=== PATIENT | female | born 1960 | race Caucasian/White ===

== ENCOUNTER 2019-02-13 15:15 | Emergency (ER) | payer MEDICAID ==
[~2019-02-13] VITALS: Ht 152.4 cm; Wt 120.5 kg
[2019-02-13 15:24] VITALS: Ht 152.4 cm; Wt 120.5 kg
[2019-02-13] MEDS ORDERED: CALCIUM 500 +1 EAC3 PO (17:37)
[2019-02-13] MEDS ORDERED: CELEXA10 MG PO (17:38)
[2019-02-13] MEDS ORDERED: FLOMAX0.4 MG PO (17:38)
[2019-02-13] MEDS ORDERED: CLARITIN 10 MG10 MG PO (17:38)
[2019-02-13] MEDS ORDERED: DOXYCYCLINE HY100 M2 PO (17:38)
[2019-02-13] MEDS ORDERED: LASIX40 MG PO (17:39)
[2019-02-13] MEDS ORDERED: FLUTICASONE PRO16 GM NASAL (17:39)
[2019-02-13] MEDS ORDERED: MILK OF MAGNESI30 ML PO (17:39)
[2019-02-13] MEDS ORDERED: MULTI-DAY VITAM1 TAB PO (17:40)
[2019-02-13] MEDS ORDERED: K-DUR20 MEQ PO (17:40)
[2019-02-13] MEDS ORDERED: HYDROCODONE-A1 UDTA2 PO (17:40)
[2019-02-13] MEDS ORDERED: PRAVACHOL40 MG PO (17:40)
[2019-02-13] MEDS ORDERED: REMERON15 MG PO (17:41)
[2019-02-13] MEDS ORDERED: VITAMIN C500 M1 PO (17:41)
[2019-02-13] MEDS ORDERED: TOPROL XL25 MG PO (17:41)
[2019-02-13] MEDS ORDERED: REGLAN10 MG PO (17:41)
[2019-02-13] MEDS ORDERED: ZANTAC300 MG PO (17:42)
[2019-02-13] MEDS ORDERED: VITAMIN D5000 UNIT PO (17:42)
[2019-02-13] MEDS ORDERED: ZINC-220220 MG PO (17:42)
[2019-02-13 18:57] VITALS: BP 136/70
== END 2019-02-13 18:58 ==
LOC: D.ER 15:15
DX: M54.2 Cervicalgia (principal); W18.09XA Striking against other object with subsequent fall, initial encounter; I10 Essential (primary) hypertension; E78.5 Hyperlipidemia, unspecified; K21.9 Gastro-esophageal reflux disease without esophagitis

== ENCOUNTER → 2019-02-14 13:32 | Outpatient (CLI) | payer MEDICAID ==
[2019-02-13 15:24] VITALS: BMI 51.8
[~2019-02-14 13:32] MED LIST: CALCIUM 500 +1 EAC3 PO; CELEXA10 MG PO; CLARITIN 10 MG10 MG PO; DOXYCYCLINE HY100 M2 PO; FLOMAX0.4 MG PO; FLUTICASONE PRO16 GM NASAL; HYDROCODONE-A1 UDTA2 PO; K-DUR20 MEQ PO; LASIX40 MG PO; MILK OF MAGNESI30 ML PO; MULTI-DAY VITAM1 TAB PO; PRAVACHOL40 MG PO; REGLAN10 MG PO; REMERON15 MG PO; TOPROL XL25 MG PO; VITAMIN C500 M1 PO; VITAMIN D5000 UNIT PO; ZANTAC300 MG PO; ZINC-220220 MG PO
== END | disposition home or self-care (01) ==
LOC: D.HCCARDIO 02-05 13:30 → D.HCCECHO 13:32 → D.HCCARDIO 14:00 → D.HCCECHO 14:00
PROVIDERS: ATTEND Internal Medicine Cardiovascular Disease
DX: R00.2 Palpitations (principal)

== ENCOUNTER 2019-12-31 00:16 | Observation (INO) | payer MEDICAID ==
[~2019-12-31] VITALS: Ht 152.4 cm; Wt 95.5 kg
[2019-12-31 01:30] LABS: BASOPHILS 0.2 % (0-2); EOSINOPHILS 1.7 % (0-7); HEMATOCRIT 34.6 % (36.0-48.0); HEMOGLOBIN 10.9 g/dL (12-16); IMMATURE GRANULOCYTES 0.1 % (0-5); LYMPHOCYTES 31.6 % (15-50); MCHC 31.5 g/dL (31.0-37.0); MCV 85.9 fL (80.0-100.0); MEAN PLATELET VOLUME 8.9 fL (7.4-10.4); MONOCYTES 7.8 % (2-11); NEUTROPHILS 58.6 % (40-80); PLATELET COUNT 258 10x3/uL (130-400); RBC 4.03 10x6/uL (4.00-5.40); RDW 15.5 % (11.5-14.5); WBC 8.8 10x3/uL (4.8-10.8)
[2019-12-31 01:37] LABS: CALC OSMOLALITY 285 mosm/kg (275-300); CALCIUM 9.4 mg/dL (8.5-10.1); CARBON DIOXIDE 29.6 mmol/L (21.0-32.0); CHLORIDE - SERUM 107 mmol/L (98-107); CREATININE - SERUM 0.8 mg/dL (0.6-1.3); GLUCOSE 133 mg/dL (74-106); POTASSIUM - SERUM 4.1 mmol/L (3.5-5.1); SODIUM 142 mmol/L (136-145); UREA NITROGEN 16 mg/dL (7-18); eGFR NON AFRICAN AMERICAN 77 mL/min (90-120)
[2019-12-31 01:46] LABS: INR 0.89 (0.85-1.17); PROTIME 12.1 SECONDS (11.6-15.0)
[2019-12-31 01:47] LABS: APTT 31.8 SECONDS (22.8-39.4)
[2019-12-31 02:07] LABS: ALBUMIN 3.2 g/dL (3.4-5.0); ALKALINE PHOSPHATASE 128 U/L (30-120); ALT (SGPT) 22 U/L (10-68); BILIRUBIN - TOTAL 0.22 mg/dL (0.2-1.3); CKMB 1.4 U/L (0.0-3.6); CREATINE KINASE 58 UL (21-215); MAGNESIUM - SERUM 2.2 mg/dL (1.8-2.4); PROTEIN - SERUM 7.2 g/dL (6.4-8.2)
[2019-12-31 02:08] LABS: TROPONIN-I < 0.017 ng/mL (0.000-0.060)
[2019-12-31 04:37] VITALS: BP 102/43
[2019-12-31 06:08] VITALS: BP 101/56
[2019-12-31 06:36] VITALS: Ht 152.4 cm; Wt 95.5 kg
[2019-12-31 07:45] LABS: CKMB 0.8 U/L (0.0-3.6); CREATINE KINASE 48 UL (21-215)
[2019-12-31 07:46] LABS: TROPONIN-I < 0.017 ng/mL (0.000-0.060)
[2019-12-31 08:00] VITALS: BP 117/44
[2019-12-31 11:00] VITALS: BP 133/45
--- NOTE | 2019-12-31 11:36 | HP ---
PATIENT: LISA BRAUN MEDICAL RECORD: [id number] ACCOUNT: [id number] LOCATION:[address] : 58 ADMISSION DATE: 12/31/19 PCP: No PCP HISTORY AND PHYSICAL EXAMINATION DATE OF ADMISSION: 12/31/2019 CHIEF COMPLAINT: Chest pain, left arm pain. HISTORY OF PRESENT ILLNESS: This is a 59-year-old female who is a resident at [facility] with no prior heart history, was brought in to the ER complaining of left-sided chest pain, left arm pain, shoulder pain just started several hours ago. No nausea, no vomiting, no diaphoresis, no shortness of breath. She has never smoked. There is a family history of heart disease. She is assigned to observation to rule out heart trouble. Cardiology has been consulted. PAST MEDICAL HISTORY: Anxiety, hypertension, hyperlipidemia, vitamin D deficiency, eczema, intellectual disabilities, osteoarthritis, history of right tib-fib fracture, reflux, obesity, overactive bladder. PAST SURGICAL HISTORY: Cholecystectomy, appendectomy, and ORIF of right leg fracture. ALLERGIES: None. HOME MEDICATIONS: Calcium plus vitamin D daily, citalopram 10 mg daily, Claritin 10 mg daily, Flomax 0.4 daily, Flonase nasal spray twice a day, Lasix 40 mg once a day, milk of magnesia p.r.n. constipation, multivitamin once a day, hydrocodone 7.5 p.r.n. pain, potassium 20 mEq 2 a day, pravastatin 40 mg at bedtime, Reglan 10 mg t.i.d., Remeron 7.5 mg at bedtime, Toprol-XL 12.5 once a day, vitamin C 500 mg once a day, vitamin D 5000 units once a day, zinc 220 once a day. HABITS: Never smoked. No alcohol or drugs. DRUG ALLERGIES: None. SOCIAL HISTORY: Single, a resident at [facility]. FAMILY HISTORY: Recorded as heart disease, hypertension and diabetes. REVIEW OF SYSTEMS: GENERAL: No major weight changes. HEENT: She has some eczema and rhinorrhea. RESPIRATORY: No known diagnosis of asthma or emphysema. CARDIAC: No known coronary artery disease. GASTROINTESTINAL: Has reflux. GENITOURINARY: Has overactive bladder. GENITOURINARY: No migraines or seizures. MUSCULOSKELETAL: Few joint aches and pains. NEUROLOGIC: No migraines or seizures. PSYCHIATRIC: Has anxiety and depression. PHYSICAL EXAMINATION: VITAL SIGNS: Temperature 98.4, pulse 80, respirations 18, blood pressure HISTORY AND PHYSICAL [id number] LISA BRAUN 101/56. GENERAL: She is awake and alert. She is pleasant. She is not having any pain right now. She is obese. SKIN: Warm and dry. HEENT: Grossly within normal limits. NECK: Supple. HEART: Regular rate and rhythm without murmur. LUNGS: Clear. ABDOMEN: Soft, flat, nontender. EXTREMITIES: No pitting edema. LABORATORY DATA: CBC is normal. Basic metabolic panel is normal. Liver functions normal. INR 0.89, magnesium 2.2, troponin less than 0.017 times 2. DIAGNOSTIC STUDIES: EKG shows normal sinus rhythm, rate 82. Nonspecific ST-T wave changes. ASSESSMENT: 1. Atypical chest pain. 2. History of hypertension. 3. Hyperlipidemia 4. Intellectual disabilities. PLAN: Cardiology has been consulted and she will undergo stress testing. Other tests or procedures as warranted. TRANSINT:[id number] Voice Confirmation ID: [id number] DOCUMENT ID: [id number] ISAAK MALDONADO MD at 1136 CC: [id number] DICTATION DATE: 12/31/19 0908 EATING DISORDER SPECIALIST: 12/31/19 1019 ADM IN [facility] [id number] [place] [address]
[2019-12-31 14:41] LABS: CKMB 0.6 U/L (0.0-3.6); CREATINE KINASE 51 UL (21-215); TROPONIN-I < 0.017 ng/mL (0.000-0.060)
[2019-12-31 15:00] VITALS: BP 126/59
--- NOTE | 2019-12-31 19:30 | NUR ---
RECEIVED BEDSIDE REPORT. PATIENT IS ALERT AND ORIENTED, RESTING COMFORTABLY IN BED. RESPIRATIONS ARE EVEN AND UNLABORED. NO S/S OF DISTRESS. NO C/O PAIN. CALL LIGHT WITHIN REACH. WILL CPOC.
[2019-12-31 19:56] LABS: CKMB 0.7 U/L (0.0-3.6); CREATINE KINASE 39 UL (21-215)
[2019-12-31 20:00] VITALS: BP 110/43
[2019-12-31 20:13] LABS: TROPONIN-I < 0.017 ng/mL (0.000-0.060)
[2020-01-01] VITALS: BP 120/45
[2020-01-01 04:00] VITALS: BP 114/42
[2020-01-01 09:04] VITALS: BP 151/62
--- NOTE | 2020-01-01 10:29 | MORECARE ---
CASE MANAGEMENT DISCHARGE SUMMARY PATIENT: LISA PRASAD UNIT: [id number] ADM DATE: 12/31/19 AGE: 59 : 58 SEX: F ROOM/BED: D.1326 AUTHOR: CHICHI MEHTA PHYSICIAN: REFERRING PHYSICIAN: ISAAK MALDONADO MD DATE OF SERVICE: 01/01/20 Discharge Plan Patient Name: LISA PRASAD Facility: [facility]:[place] : 1960 Planned Disposition: Nursing Facility [facility] Anticipated Discharge Date: 01/01/20 Discharge Date: Expected LOS: 1 Initial Reviewer: [email or web address] Initial Review Date: 12/31/2019 Generated: 01/01/20 11:28 am Comments DCP- Discharge Planning Updated by [id number]: Raisa Michael on 01/01/20 9:[address] CM faxed information to [facility]. Pending COVID results. Patient is a resident of [facility] [phone]), in a supply coordinator bed, per Annie (nurse). Patient will require COVID testing prior to returning to the facility. COVID test has been ordered. External Providers External Provider: [facility] Next Contact Date: Service Request Date: Service Type: Resolution: Reviewer: Comments: Coverage Notice Reviewer: [id number] Aakash Michael Notice Issued Date-Time: 01/01/2020 9:07 Notice Type: IM Discharge Notice Notice Delivered To: Patient Relationship to Patient: Self Executor Of Estate Name: Lisa Prasad Delivery Method: HAND - Hand Delivered Linda Days: Prior Verbal Notification: Recipient Understood Notice: Yes Recipient Signature: Yes Med Rec Note Co-signed by Attending: Coverage Notice Comment: ABIOLA YUSUF nasir Patient Name: LISA PRASAD Page [phone] at 1029 All edits/amendments must be made on the electronic document DICTATION DATE: 01/01/20 1028 OBSTETRICIAN GYNECOLOGIST: GEORGE 01/01/20 1028 RPT#: [id number] DC DATE: STATUS: ADM IN [facility] [address] [place] [address] END OF REPORT
[2020-01-01 17:03] VITALS: BP 118/52
--- NOTE | 2020-01-01 19:15 | NUR ---
RECEIVED BEDSIDE REPORT. PATIENT IS ALERT AND ORIENTED, RESTING COFMORTABLY IN BED. RESPIRATIONS ARE EVEN AND UNLABORED. NO S/S OF DISTRESS. NO C/O PAIN. CALL LIGHT WITHIN REACH. WILL CPOC.
[2020-01-01 20:00] VITALS: BP 129/41
[2020-01-02 04:00] VITALS: BP 136/53
[2020-01-02 08:01] VITALS: BP 134/65
[2020-01-02 12:13] VITALS: BP 124/89
--- NOTE | 2020-01-02 13:18 | MORECARE ---
CASE MANAGEMENT DISCHARGE SUMMARY PATIENT: LISA PRASAD UNIT: [id number] ADM DATE: 12/31/19 AGE: 59 : 58 SEX: F ROOM/BED: D.2347 AUTHOR: CHICHI MEHTA PHYSICIAN: REFERRING PHYSICIAN: ISAAK MALDONADO MD DATE OF SERVICE: 01/02/20 Discharge Plan Patient Name: LISA PRASAD Facility: [facility] : 1960 Planned Disposition: Nursing Facility [facility] Anticipated Discharge Date: 01/01/20 Discharge Date: Expected LOS: 1 Initial Reviewer: [email or web address] Initial Review Date: 12/31/2019 Generated: 01/02/20 2:17 pm Comments DCP- Discharge Planning Updated by [id number]: Raisa Michael on 01/02/20 12:[address] COVID negative. CM notified of same and arranged transportation, per Anuj the van will pick the patient up at 2 pm. DCP- Discharge Planning Updated by [id number]: Raisa Michael on 01/01/20 9:[address] CM faxed information to [facility]. Pending COVID results. Patient is a resident of [facility] ([phone]), in a manufacturing coordinator bed, per Annie (nurse). Patient will require COVID testing prior to returning to the facility. COVID test has been ordered. Coverage Notice Reviewer: [id number] - Raisa Michael Notice Issued Date-Time: 01/01/2020 9:07 Notice Type: IM Discharge Notice Notice Delivered To: Patient Relationship to Patient: Self Manager Energy Name: iLsa Prasad Delivery Method: HAND - Hand Delivered Linda Days: Prior Verbal Notification: Recipient Understood Notice: Yes Recipient Signature: Yes Med Rec Note Co-signed by Attending: Coverage Notice Comment: ABIOLA YUSUF nasir Last DP export: 01/01/20 9:29 am Patient Name: LISA PRASAD Page [phone] at 1318 All edits/amendments must be made on the electronic document DICTATION DATE: 01/02/20 1318 MANAGER STRATEGIC PARTNERSHIPS: GEORGE 01/02/20 1318 RPT#: [id number] DC DATE: STATUS: ADM IN [facility] [address] [place] [address] END OF REPORT
--- NOTE | 2020-01-02 14:06 | NUR ---
COVID SCREEN NEGATIVE. [facility] [place] NOTIFIED. ESCORTED TO [place] [facility] BY W/C.
--- NOTE | 2020-01-02 16:41 | MORECARE ---
CASE MANAGEMENT DISCHARGE SUMMARY PATIENT: LISA PRASAD UNIT: [id number] ADM DATE: 12/31/19 AGE: 59 : 58 SEX: F ROOM/BED: D.1731 AUTHOR: CHICHI MEHTA PHYSICIAN: REFERRING PHYSICIAN: ISAAK MALDONADO MD DATE OF SERVICE: 01/02/20 Discharge Plan Patient Name: LISA PRASAD Facility: [facility] : 1960 Planned Disposition: Nursing Facility [facility] Anticipated Discharge Date: 01/01/20 Discharge Date: 01/02/2020 Expected LOS: 1 Initial Reviewer: [email or web address] Initial Review Date: 12/31/2019 Generated: 01/02/20 5:40 pm Comments DCP- Discharge Planning Updated by [email or web address]: Raisa Michael on 01/02/20 12:[address] COVID negative. CM notified of same and arranged transportation, per Anuj the van will pick the patient up at 2 pm. DCP- Discharge Planning Updated by [id number]: Raisa Michael on 01/01/20 9:[address] CM faxed information to [facility]. Pending COVID results. Patient is a resident of [facility] ([phone]), in a ad terminal makeup operator bed, per Annie (nurse). Patient will require COVID testing prior to returning to the facility. COVID test has been ordered. Coverage Notice Reviewer: [id number] - Raisa Michael Notice Issued Date-Time: 01/01/2020 9:07 Notice Type: IM Discharge Notice Notice Delivered To: Patient Relationship to Patient: Self Rug Dyer Helper Name: Lisa Prasad Delivery Method: HAND - Hand Delivered Linda Days: Prior Verbal Notification: Recipient Understood Notice: Yes Recipient Signature: Yes Med Rec Note Co-signed by Attending: Coverage Notice Comment: DC IMM nasir Last DP export: 01/02/20 12:18 pm Patient Name: LISA PRASAD Page [phone] at 1641 All edits/amendments must be made on the electronic document DICTATION DATE: 01/02/20 1640 PLATFORM LOADER: DM 01/02/20 1640 RPT#: [id number] DC DATE:01/02/20 STATUS: DIS IN [facility] [address] [place] [address] END OF REPORT
== END 2020-01-02 14:07 ==
LOC: D.ER 00:16 → D.M2 05:55 → OBSVTIME 05:55 → D.M2 01-02 14:07
PROVIDERS: Family Medicine; ADMIT Family Medicine; ATTEND Family Medicine
DX: R07.9 Chest pain, unspecified (principal); I20.9 Angina pectoris, unspecified; I10 Essential (primary) hypertension; E78.5 Hyperlipidemia, unspecified; E11.9 Type 2 diabetes mellitus without complications; K21.9 Gastro-esophageal reflux disease without esophagitis

== ENCOUNTER 2020-02-21 08:45 | Emergency (ER) | payer MEDICAID ==
[~2020-02-21] VITALS: Ht 152.4 cm; Wt 111.4 kg
[2020-02-21 08:49] VITALS: Ht 152.4 cm; Wt 111.4 kg
[2020-02-21 12:17] VITALS: BP 139/62
== END 2020-02-21 13:11 | disposition home or self-care (01) ==
LOC: D.ER 08:45
DX: M25.561 Pain in right knee (principal); M25.562 Pain in left knee; W19.XXXA Unspecified fall, initial encounter; Y93.9 Activity, unspecified; Y92.9 Unspecified place or not applicable; E11.9 Type 2 diabetes mellitus without complications; I10 Essential (primary) hypertension; E78.5 Hyperlipidemia, unspecified; K21.9 Gastro-esophageal reflux disease without esophagitis